=== PATIENT | female | born 1985 | race Hispanic/Latino ===

== ENCOUNTER 2016-11-18 02:56 | Inpatient (IN) | payer BC ==
[~2016-11-18] VITALS: Ht 152.4 cm; Wt 64.4 kg
[2016-11-18] VITALS (9 sets, daily range): BP systolic 93–124; BP diastolic 53–67
[~2016-11-18 02:56] MED LIST: Motrin PO
[2016-11-18 04:06] LABS: EOSINOPHIL (%) 0.6 % (0-5); HEMATOCRIT 32.9 % (36.0-46.0); IMMATURE GRANULOCYTE (%) 0.2 % (0.0-0.7); INSTRUMENT ABS NEUTROPHIL CT 3.7 K/uL; LYMPHOCYTE COUNT 2.4 K/uL (1.0-2.8); MCH 27.1 PG (29.0-34.0); MCHC 32.8 G/DL (30.0-36.0); MCV 82.5 FL (83-99); MEAN PLAT.VOLUME 13.3 uM^3 (9.5-12.4); MONOCYTE (%) 6.1 % (3-12); MONOCYTE COUNT 0.4 K/uL (0-0.8); NEUTROPHIL (%) 56.5 % (45-76); NEUTROPHIL COUNT 3.7 K/uL (1.8-6.4); PLATELET COUNT 162 K/uL (156-360); RBC DIS.WIDTH-CV 13.6 % (11.8-14.6); RBC DIS.WIDTH-SD 40.2 % (39-53); RED BLOOD COUNT 3.99 M/uL (3.80-5.20); WHITE BLOOD COUNT 6.5 K/uL (4.1-10.2)
[2016-11-19 05:32] LABS: EOSINOPHIL (%) 2.2 % (0-5); EOSINOPHIL COUNT 0.1 K/uL (0-0.3); HEMATOCRIT 30.1 % (36.0-46.0); IMMATURE GRANULOCYTE (%) 0.2 % (0.0-0.7); INSTRUMENT ABS NEUTROPHIL CT 2.8 K/uL; LYMPHOCYTE COUNT 2.5 K/uL (1.0-2.8); MCH 28.3 PG (29.0-34.0); MCHC 33.9 G/DL (30.0-36.0); MCV 83.6 FL (83-99); MEAN PLAT.VOLUME 13.6 uM^3 (9.5-12.4); MONOCYTE (%) 5.7 % (3-12); MONOCYTE COUNT 0.3 K/uL (0-0.8); NEUTROPHIL (%) 48.1 % (45-76); NEUTROPHIL COUNT 2.8 K/uL (1.8-6.4); PLATELET COUNT 144 K/uL (156-360); RBC DIS.WIDTH-SD 42.6 % (39-53); WHITE BLOOD COUNT 5.8 K/uL (4.1-10.2)
[2016-11-19 07:29] VITALS: BP 100/58
[2016-11-19 15:07] VITALS: BP 98/50
[2016-11-19 23:10] VITALS: BP 110/66
[2016-11-20 08:02] VITALS: BP 114/66
== END 2016-11-20 11:20 | disposition home or self-care (01) | DRG 775 ==
LOC: LDRP-OP 02:56 → 2WEST 02:57 → LDRP-OP 12-20 15:46
PROVIDERS: Advanced Practice Midwife
PROC: 10E0XZZ Delivery of Products of Conception, External Approach (ICD-10-PCS; principal; 2016-11-18)
DX: O99.214 Obesity complicating childbirth (principal); Z3A.39 39 weeks gestation of pregnancy; Z37.0 Single live birth
CPT/HCPCS: 85025; J0595; J7120

== ENCOUNTER 2017-02-04 09:24 | Day surgery (SDC) | payer BC ==
[~2017-02-04] VITALS: Ht 152.4 cm; Wt 63.5 kg
[~2017-02-04 09:24] MED LIST changes: +PRENATAL TABLE1 EAC3 PO
[2017-02-04 09:55] LABS: MCV 83.8 FL (83-99)
[2017-02-04 10:31] VITALS: BP 120/69
[2017-02-04] MEDS ORDERED: MOTRIN800 MG PO (12:51)
[2017-02-04 14:11] VITALS: BP 130/70
[2017-02-04 15:07] VITALS: BP 99/55
== END 2017-02-04 15:58 | disposition home or self-care (01) ==
LOC: SDC 09:24
PROVIDERS: Obstetrics & Gynecology
PROC: 0UT74ZZ Resection of Bilateral Fallopian Tubes, Percutaneous Endoscopic Approach (ICD-10-PCS; principal; 2017-02-04)
DX: Z30.2 Encounter for sterilization (principal)
CPT/HCPCS: 84702; 85014; 85018; 86850; 86900; 86901; 88302; J0131; J1100; J1170; J1885; J2250; J2405; J2710; J3010